=== PATIENT | male | born 1995 | race Hispanic/Latino ===

== ENCOUNTER 2024-06-25 12:46 | Inpatient (IN) | payer SELFPAY ==
[~2024-06-25] VITALS: Ht 172.7 cm; Wt 129.0 kg
[2024-06-25] MEDS: 0.9%NACL 1000ML 1,000 ML IV ONE (13:57)
[2024-06-25] MEDS: morPHINE 4 MG SYG IVP ONE (13:58)
[2024-06-25] MEDS: ondanSETRON 4MG INJ IVP ONE (13:58)
--- NOTE | 2024-06-25 14:00 | HMCIMG ---
US SCROTUM & CONTENTS HISTORY: scrotum pain TECHNIQUE: US SCROTUM & CONTENTS. B mode, color flow and spectral analysis was performed. FINDINGS: RIGHT TESTICLE: measures 4.9 cm. Vascular flow is seen. No evidence of hydrocele or varicocele. Epididymal head cyst is seen measuring 1.7 cm. LEFT TESTICLE: measures 3.7 cm. Vascular flow is seen. No evidence of hydrocele or varicocele. The epididymis demonstrates echogenicity within normal limits. IMPRESSION: Vascular flow was seen in both testicles at this time. Right epididymal head cyst.
[2024-06-25 14:17] LABS: BASOPHILS # (AUTO) 0.04 K/uL (0.00-0.20); BASOPHILS % (AUTO) 0.2 % (0.0-5.0); EOSINOPHILS # (AUTO) 0.03 K/uL (0.00-0.70); EOSINOPHILS % (AUTO) 0.2 % (0.0-8.0); HEMATOCRIT 37.8 % (42-54); MEAN CORPUSCULAR HEMOGLOBIN 25.7 pg (27.0-33.0); MEAN CORPUSCULAR VOLUME 80.4 fL (79-99); MONOCYTES # (AUTO) 1.6 K/uL (0.1-1.0); MONOCYTES % (AUTO) 10.1 % (3.0-13.0); NEUTROPHILS # (AUTO) 12.6 K/uL (1.8-7.7); NEUTROPHILS % (AUTO) 76.9 % (40.0-77.0); PLATELET COUNT (AUTO) 341 K/uL (130-400); RED CELL DISTRIBUTION WIDTH 14.5 % (11.0-15.5); WHITE BLOOD COUNT (AUTO) 16.3 K/uL (4.8-10.8)
[2024-06-25 14:22] LABS: APPEARANCE,URINE CLEAR (CLEAR); BILIRUBIN,URINE NEGATIVE (NEGATIVE); COLOR,URINE YELLOW (YELLOW); GLUCOSE, URINE (UA) NEGATIVE (NEGATIVE); KETONES,URINE NEGATIVE (NEGATIVE); LEUKOCYTE ESTERASE ,URINE NEGATIVE Leu/uL (NEGATIVE); NITRATE,URINE NEGATIVE (NEGATIVE); OCCULT BLOOD,URINE NEGATIVE (NEGATIVE); PH,URINE 6.5 (5.0-8.0); PROTEIN,URINE 10 mg/dL (NEGATIVE)
[2024-06-25 14:25] LABS: ADD UA MICROSCOPIC YES
[2024-06-25 14:27] LABS: MUCUS,URINE RARE LPF (None Seen); WBC,URINE 0-1 /HPF (0-1)
[2024-06-25 14:28] LABS: CREATININE 0.8 mg/dL (0.5-1.3); POTASSIUM 3.9 mmol/L (3.5-5.1)
[2024-06-25] MEDS ORDERED: IOHEXOL-350 75 ML VIAL IV ONE (15:09)
--- NOTE | 2024-06-25 15:38 | HMCIMG ---
CT ABDOMEN/PELVIS W/CONTRAST HISTORY: Abdominal pain COMPARISON: None TECHNIQUE: Multiple sequential axial images of the abdomen and pelvis were obtained from the dome of the diaphragm through symphysis pubis. Patient was examined 5 cc of Omnipaque through intravenous route. Oral contrast was not given. FINDINGS: No pleural effusion is seen bilaterally. There is no evidence of parenchymal disease or pulmonary nodule of the visualized lower lungs. Degenerative changes of the thoracolumbar spine are present. The heart is not enlarged. Liver is enlarged with fatty changes measuring 25 cm. There is sigmoid colon wall thickening with adjacent fat stranding suggestive of acute sigmoid diverticulitis. There is complex fluid collection with air collection near the sigmoid colon measuring 4 cm suspicious for abscess. No CT evidence of acute appendicitis is seen. Liver, spleen, adrenal glands and pancreas are unremarkable. There is no evidence of hydronephrosis bilaterally. No evidence of renal stone is seen. Fecal material is seen in the colon. There are normal size retroperitoneal and mesenteric lymph nodes. No ascites is seen. Pelvic sidewalls are symmetric bilaterally. Bladder is moderately distended without wall thickening. IMPRESSION: 1. Findings suggestive acute sigmoid diverticulitis with diverticular abscess. CT was performed with one or more following dose reduction techniques: automated exposure control, adjustment of the mA and kv according to patient's size, or use of a iterative reconstruction technique.
--- NOTE | 2024-06-25 16:24 | ERN ---
ED Note History of Present Illness Stated Complaint: LOWER ABD PAIN Chief Complaint: Abdominal Pain Time Seen by MD: 13:05 Time Seen by Midlevel: 13:05 Dictation: The patient is a 28-year-old male with no past medical history who presents to the emergency department with complaints of lower abdominal pain associated with nausea, nonbloody vomiting, nonbloody diarrhea. Patient reports pain radiates down his testicles and his leg. Reports on and off fevers. Reports burning urination. Denies any discharge. Allergies: Coded Allergies: No Known Drug Allergies (Unverified Allergy, Unknown, 06/25/24) Past Medical History Past Medical History: No Pertinent History Surgical History: None RN Note Reviewed/Agreed w/PFSH: Yes Review of System Dictation Constitutional: Negative for chills, and weight loss positive for fever Eyes: Negative for injury, pain,redness, and discharge ENT: Negative for injury,pain or swelling Cardiovascular: Negative for chest pain, palpitations, and edema Respiratory: Negative for shortness of breath, cough, and wheezing, Abdomen/GI: Negative for , and constipation positive for abdominal pain, nausea, vomiting, diarrhea Back: Negative for injury and pain : Negative for injury, bleeding and discharge MS/Extremity: Negative for injury and deformity Skin: Negative for rash, and discoloration Neuro: Negative for headache, weakness, numbness, tingling, and seizure Psych: Negative for suicide ideation, homicidal ideation, and hallucinations Initial Vital Sign VS Vital Signs Date Time Temp Pulse Resp B/P (MAP) Pulse Ox O2 Delivery O2 Flow Rate FiO2 06/25/24 13:17 100.2 96 18 153/90 Room Air 06/25/24 13:38 98 0 21 Physical Exam Dictation Vital Signs reviewed General Appearance: Alert, oriented x 3, no acute distress, well developed, nourished. Head and Face: non-traumatic. Eyes: PERRL, pink conjunctivas, eyelid no trauma, anterior chamber with arcus senilis. Ears: Pinnas intact and no signs of trauma or erythema ear canals clear and no discharge TM no erythema Nose: No discharge, no bleeding. Oropharynx: Mouth normal, tongue pink. pharynx clear,no erythema, tonsils no exudates, no abscesses noted, mucous membrane moist Neck: Supple, non-tender, no thyromegaly, no masses, no JVD, no bruits Breast:Deferred Chest:No tenderness, no crepitus, no paradoxical movement, no retractions Lungs:Clear, well-ventilated, symmetric, no rales, no wheezing, no rhonchi, no stridor, good breath sounds bilaterally Heart: Regular rate, regular rhythm, no murmur, no gallops Vascular: no peripheral edema, Abdomen: Soft, positive bowel sounds, nondistended, no guarding, Suprapubic tenderness, no rebound, no masses no hepatomegaly, no splenomegaly, no Wyatt's sign, no hernias. Rectal: Deferred Genital: Deferred Neurological: Normal speech, motor function intact, sensory function intact Musculoskeletal: Neck nontender, full range of motion, back nontender, full range of motion, Extremities: nontender, full range of motion Skin: Color pink, dry, no turgor, no rash, no lacerations, no abrasions, no contusions. Lymphatic: Deferred Results (Laboratory/Radiology) Laboratory/Radiology Laboratory Tests Test 06/25/24 14:01 06/25/24 14:08 06/25/24 16:37 Urine Color YELLOW (YELLOW) Urine Appearance CLEAR (CLEAR) Urine pH 6.5 (5.0-8.0) Urine Specific [place] 1.029 (1.001-1.031) Urine Protein 10 mg/dL (NEGATIVE) H Urine Glucose (UA) NEGATIVE mg/dL (NEGATIVE) Urine Ketones NEGATIVE mg/dL (NEGATIVE) Urine Occult Blood NEGATIVE (NEGATIVE) Urine Nitrate NEGATIVE (NEGATIVE) Urine Bilirubin NEGATIVE mg/dL (NEGATIVE) Urine Urobilinogen 4.0 mg/dL (0.2-1.0) H Urine Leukocyte Esterase NEGATIVE Fidelia/uL Urine RBC 2-5 /HPF (0-1) H Urine WBC 0-1 /HPF (0-1) Urine Bacteria None /HPF (None Seen) White Blood Count 16.3 K/uL (4.8-10.8) H Red Blood Count 4.70 MIL/uL (4.50-6.20) Hemoglobin 12.1 g/dL (14.0-18.0) L Hematocrit 37.8 % (42-54) L Mean Corpuscular Volume 80.4 fL (79-99) Mean Corpuscular Hemoglobin 25.7 pg (27.0-33.0) L Mean Corpuscular Hemoglobin Concent 32.0 g/dL (32.0-36.0) Red Cell Distribution Width 14.5 % (11.0-15.5) Platelet Count 341 K/uL (130-400) Mean Platelet Volume 8.6 fL (7.5-10.5) Immature Granulocyte % (Auto) 0.6 % (0-1) Neutrophils (%) (Auto) 76.9 % (40.0-77.0) Lymphocytes (%) (Auto) 12.0 % (21.0-51.0) L Monocytes (%) (Auto) 10.1 % (3.0-13.0) Eosinophils (%) (Auto) 0.2 % (0.0-8.0) Basophils (%) (Auto) 0.2 % (0.0-5.0) Neutrophils # (Auto) 12.6 K/uL (1.8-7.7) H Lymphocytes # (Auto) 2.0 K/uL (1.0-4.8) Monocytes # (Auto) 1.6 K/uL (0.1-1.0) H Eosinophils # (Auto) 0.03 K/uL (0.00-0.70) Basophils # (Auto) 0.04 K/uL (0.00-0.20) Absolute Immature Granulocyte (auto 0.10 K/uL (0-1) Nucleated Red Blood Cells 0.0 % (0.0-0.19) Sodium Level 136 mmol/L (136-145) Potassium Level 3.9 mmol/L (3.5-5.1) Chloride Level 101 mmol/L (101-111) Carbon Dioxide Level 31 mmol/L (21-32) Blood Urea Nitrogen 9 mg/dL (7-18) Creatinine 0.8 mg/dL (0.5-1.3) Glomerular Filtration Rate Calc 125 mL/min (>90) Random Glucose 99 mg/dL (70-105) Total Calcium 8.9 mg/dL (8.5-10.1) Lactic Acid Level 1.0 mmol/L (0.8-2.5) REASON: scrotum pain ORDERING PHYSICIAN: SHUBHAM LOBO PROCEDURE: SCROTUM - US SCROTUM & CONTENTS US SCROTUM & CONTENTS HISTORY: scrotum pain TECHNIQUE: US SCROTUM & CONTENTS. B mode, color flow and spectral analysis was performed. FINDINGS: RIGHT TESTICLE: measures 4.9 cm. Vascular flow is seen. No evidence of hydrocele or varicocele. Epididymal head cyst is seen measuring 1.7 cm. LEFT TESTICLE: measures 3.7 cm. Vascular flow is seen. No evidence of hydrocele or varicocele. The epididymis demonstrates echogenicity within normal limits. IMPRESSION: Vascular flow was seen in both testicles at this time. Right epididymal head cyst. REASON: lower abd pain ORDERING PHYSICIAN: SHUBHAM LOBO PROCEDURE: ABD PEL W - CT ABDOMEN/PELVIS W/CONTRAST CT ABDOMEN/PELVIS W/CONTRAST HISTORY: Abdominal pain COMPARISON: None TECHNIQUE: Multiple sequential axial images of the abdomen and pelvis were obtained from the dome of the diaphragm through symphysis pubis. Patient was examined 5 cc of Omnipaque through intravenous route. Oral contrast was not given. FINDINGS: No pleural effusion is seen bilaterally. There is no evidence of parenchymal disease or pulmonary nodule of the visualized lower lungs. Degenerative changes of the thoracolumbar spine are present. The heart is not enlarged. Liver is enlarged with fatty changes measuring 25 cm. There is sigmoid colon wall thickening with adjacent fat stranding suggestive of acute sigmoid diverticulitis. There is complex fluid collection with air collection near the sigmoid colon measuring 4 cm suspicious for abscess. No CT evidence of acute appendicitis is seen. Liver, spleen, adrenal glands and pancreas are unremarkable. There is no evidence of hydronephrosis bilaterally. No evidence of renal stone is seen. Fecal material is seen in the colon. There are normal size retroperitoneal and mesenteric lymph nodes. No ascites is seen. Pelvic sidewalls are symmetric bilaterally. Bladder is moderately distended without wall thickening. IMPRESSION: 1. Findings suggestive acute sigmoid diverticulitis with diverticular abscess. Labs Reviewed?: Yes ED Course ED Course Orders Procedure Category Date Status Time Cbc With Differential LAB 06/25/24 Complete 13:11 Urinalysis Profile LAB 06/25/24 Complete 13:11 0.9%Nacl 1000ml (Ns PHA 06/25/24 Complete 1000ml) 13:30 Morphine 4mg Syg PHA 06/25/24 Complete (Morphine 4mg Syg) 13:30 Ondansetron 4mg Inj PHA 06/25/24 Complete (Zofran 4mg Inj) 13:30 Basic Metabolic Panel LAB 06/25/24 Complete 13:11 Us Scrotum & Contents US 06/25/24 Resulted 13:11 Ct Abdomen/Pelvis CT 06/25/24 Resulted W/Contrast 14:29 Iohexol (Omnipaque) PHA 06/25/24 Complete 15:09 Blood Cult JESSICA 06/25/24 In Process 16:01 Zosyn 3.375gm+Ns 50ml PHA 06/25/24 Complete (Zosyn 3.375gm+Ns 16:30 Lactic Acid LAB 06/25/24 Complete 16:01 Hydromorphone 0.5mg PHA 06/25/24 Complete Syg (Dilaudid 0.5mg 17:00 Admit Orders ADM 06/25/24 Transmitted 16:58 Edm Admit Bridge Order ADM 06/25/24 Transmitted 16:58 Diphenhydramine Hcl PHA 06/25/24 Complete (Benadryl Inj) 17:30 Vital Signs Date Time Temp Pulse Resp B/P (MAP) Pulse Ox O2 Delivery O2 Flow Rate FiO2 06/25/24 13:38 100.0 90 18 150/88 98 Room Air* 0 21 06/25/24 13:17 100.2 96 18 153/90 Room Air Medical Decision Making MDM MDM: The patient is a 28-year-old male with no past medical history who presents to the emergency department with complaints of lower abdominal pain associated with nausea, nonbloody vomiting, nonbloody diarrhea. Patient reports pain radiates down his testicles and his leg. Reports on and off fevers. Reports burning urination. Denies any discharge. CBC showed leukocytosis, mild normocytic anemia, chemistry showed no electrolyte imbalance, normal renal function, urinalysis negative for leukocyte esterase, no nitrites, ultrasound revealed a epididymal cyst to the right, CT abdomen showed acute sigmoid diverticulitis with possible abscess. Patient will be admitted for treatment. Differential diagnosis: UTI, diverticulitis, appendicitis, gastroenteritis Comorbidities: None Tests considered and not ordered secondary to shared decision making include: none Previous outside records reviewed: none Risk of complication and/or morbidity or mortality of patient management: The patient meets criteria for admission. Need for emergency major/minor surgery: No There are no social concerns with this patient. I independently interpreted the tests I ordered (labs, urinalysis, etc.). I discussed the case with the hospitalist for admission. Denae who accepts admission I discussed the case with the following specialists: Historian: pateint. I independently interpreted imaging studies and EKGs that I ordered (US, CT, XR, EKG, etc.). External chart review: none. Medical management and examination interpretation discussions were had by me with other qualified healthcare professionals as indicated for the patient's care. DX & DISP Disposition: Inpatient Decision to Admit Date: Jun 25, 2024 Decision to Admit Time: 16:58 Departure Impression: Primary Impression: Diverticulitis Additional Impressions: Leukocytosis, Nausea and vomiting, Fever, Sepsis Condition: Stable Referrals: SELF,REFERRAL (PCP) I have reviewed the case, and I agree with, Diagnosis and Plan SHUBHAM LOBOP Jun 25, 2024 16:24
[2024-06-25] MEDS: ZOSYN 3.375GM+NS 50ML 50 ML IVPB ONE (16:39)
[2024-06-25] MEDS: hydroMORPHone 0.5 MG SYG (0.5MG/0.5ML) IVP ONE (16:40)
[2024-06-25] MEDS: DiphenhydrAMINE HCL 50 MG/ML VIAL IM ONE (17:31)
--- NOTE | 2024-06-25 19:03 | NUR ---
ortho vitals supine-116/77 hr-94 sitting- 120/84 hr 98 standing- 113/67 hr 106
--- NOTE | 2024-06-25 19:47 | HP ---
[facility] HISTORY AND PHYSICAL Date of Service: Jun 25, 2024 Time of Service: 19:41 Chief complaint abdominal pain HISTORY OF PRESENT ILLNESS: [ 28-year-old male with no significant past medical history started with cramping pains last week pain worsened until his about a 8/10.. He has also had a change in his bowel habits with diarrhea in the last week and fevers for the last week. He has been controlling the fever with Tylenol. He describes nausea but no vomiting today. He had his last bowel movement this morning was loose there was no blood. ] REVIEW OF SYSTEMS Ten points reviewed and negative except for history of present illness PAST MEDICAL HISTORY: [ No hypertension, no cancer, no diabetes, no TB, no hepatitis ] PAST SURGICAL HISTORY: [ Negative ] PAST SOCIAL HISTORY: [ Patient is with four kids alive and well, nonsmoker and drinks about two beers per week. ] FAMILY HISTORY: [ Parents are both living mother has hypertension he has one brother and two sisters alive and well. Allergies he did not describe facial flushing when he received morphine a few moments ago. ] Coded Allergies: No Known Drug Allergies (Unverified Allergy, Unknown, 06/25/24) PHYSICAL EXAM GENERAL APPEARANCE: The patient is awake, alert, and oriented, in no acute cardiopulmonary distress. NEUROLOGICAL: Cranial nerves II-XII grossly intact. Motor is 5/5 in bilateral upper and lower extremities proximal to distal. No sensory deficits. HEENT: Face is symmetric. Pupils are equal and reactive. Extraocular movements are intact. NECK: Supple. No JVD. No thyromegaly. No submental, submandibular, pre- /postauricular, occipital or supraclavicular lymphadenopathy. CHEST: Normal chest expansion. No Telemetry. LUNGS: Absence of any rales, rhonchi or any wheezing. CARDIOVASCULAR: Regular. S1 and S2 normal. No appreciable rubs, murmurs or gallops. ABDOMEN: Soft, nontender, and nondistended. There is no rebound, voluntary guarding, or rigidity. : Deferred. No Billy. EXTREMITIES: Non-edematous and not cyanotic. No clubbing. Good capillary refill. SKIN: No skin breakdown. Vital Sign (Last 24 Hours) 06/25/24 13:38 Temp 100.0 Pulse 90 Resp 18 B/P (MAP) 150/88 Pulse Ox 98 O2 Delivery Room Air* O2 Flow Rate 0 FiO2 21 LABS: Laboratory: Test 06/25/24 16:37 06/25/24 14:08 06/25/24 14:01 Range/Units Lactic Acid Level 1.0 0.8-2.5 mmol/L White Blood Count 16.3 H 4.8-10.8 K/uL Red Blood Count 4.70 4.50-6.20 MIL/uL Hemoglobin 12.1 L 14.0-18.0 g/dL Hematocrit 37.8 L 42-54 % Mean Corpuscular Volume 80.4 79-99 fL Mean Corpuscular Hemoglobin 25.7 L 27.0-33.0 pg Mean Corpuscular Hemoglobin Concent 32.0 32.0-36.0 g/dL Red Cell Distribution Width 14.5 11.0-15.5 % Platelet Count 341 130-400 K/uL Mean Platelet Volume 8.6 7.5-10.5 fL Immature Granulocyte % (Auto) 0.6 0-1 % Neutrophils (%) (Auto) 76.9 40.0-77.0 % Lymphocytes (%) (Auto) 12.0 L 21.0-51.0 % Monocytes (%) (Auto) 10.1 3.0-13.0 % Eosinophils (%) (Auto) 0.2 0.0-8.0 % Basophils (%) (Auto) 0.2 0.0-5.0 % Neutrophils # (Auto) 12.6 H 1.8-7.7 K/uL Lymphocytes # (Auto) 2.0 1.0-4.8 K/uL Monocytes # (Auto) 1.6 H 0.1-1.0 K/uL Eosinophils # (Auto) 0.03 0.00-0.70 K/uL Basophils # (Auto) 0.04 0.00-0.20 K/uL Absolute Immature Granulocyte (auto 0.10 0-1 K/uL Nucleated Red Blood Cells 0.0 0.0-0.19 % Sodium Level 136 136-145 mmol/L Potassium Level 3.9 3.5-5.1 mmol/L Chloride Level 101 101-111 mmol/L Carbon Dioxide Level 31 21-32 mmol/L Blood Urea Nitrogen 9 7-18 mg/dL Creatinine 0.8 0.5-1.3 mg/dL Glomerular Filtration Rate Calc 125 >90 mL/min Random Glucose 99 70-105 mg/dL Total Calcium 8.9 8.5-10.1 mg/dL Urine Color YELLOW YELLOW Urine Appearance CLEAR CLEAR Urine pH 6.5 5.0-8.0 Urine Specific [place] 1.029 1.001-1.031 Urine Protein 10 H NEGATIVE mg/dL Urine Glucose (UA) NEGATIVE NEGATIVE mg/dL Urine Ketones NEGATIVE NEGATIVE mg/dL Urine Occult Blood NEGATIVE NEGATIVE Urine Nitrate NEGATIVE NEGATIVE Urine Bilirubin NEGATIVE NEGATIVE mg/dL Urine Urobilinogen 4.0 H 0.2-1.0 mg/dL Urine Leukocyte Esterase NEGATIVE NEGATIVE Fidelia/uL Urine RBC 2-5 H 0-1 /HPF Urine WBC 0-1 0-1 /HPF Urine Bacteria None None Seen /HPF DIAGNOSTICS / RADIOLOGY: [ CT scan showing acute sigmoid diverticulitis with abscess] ASSESSMENT: [1. Acute sigmoid diverticulitis with abscess ] PLAN: [ Admit the patient to med surge Zosyn 3.375 IV q6 hr blood cx's taken in ER Tylenol for fever and pain Toradol 30 mg IV Q eight p.r.n. pain Pepcid 20 mg IV q.12 Lovenox 40 mg IV q.day Further orders to follow as indicated Surgical consultation already completed Dr. Burns notified] ROSE MOREIRA MD Jun 25, 2024 19:47
[2024-06-25] MEDS ORDERED: ketOROlac 30MG VIAL (30MG/ML) IM PRN (20:00)
[2024-06-25 21:26] VITALS: BP 126/77; PULSE 111; RESP 20; TEMP 100.2
[2024-06-25] MEDS ORDERED: acetaMINOPHEN 325 MG TAB PO PRN ×2 (23:00)
[2024-06-25] MEDS ORDERED: DiphenhydrAMINE HCL 50 MG/ML VIAL IV PRN (23:00)
[2024-06-25] MEDS ORDERED: LACTULOSE 20 GM/30 ML UDCUP PO PRN (23:00)
[2024-06-25] MEDS ORDERED: NITROGLYCERIN 0.4 MG SL TAB SL PRN (23:00)
[2024-06-25] MEDS ORDERED: DiphenhydrAMINE HCL 25 MG CAPSULE PO PRN (23:00)
[2024-06-25] MEDS: FAMOTIDINE 20MG VIAL IV SCH (23:06)
[2024-06-25] MEDS: ketOROlac 30MG VIAL (30MG/ML) IVP PRN (23:07)
[2024-06-25] MEDS: PHARMACY COMMUNICATION MISC ONE (23:07)
[2024-06-25] MEDS: DEXTROSE 5 %-0.45 % NACL 1,000 ML IV SCH (23:08)
[2024-06-25 23:38] VITALS: O2SAT 98
[2024-06-26] VITALS (9 sets, daily range): BP systolic 121–151; BP diastolic 41–70; PULSE 93–111; RESP 19–20; TEMP 98.6–100.7; O2SAT 97–98
[2024-06-26 06:19] LABS: BASOPHILS # (AUTO) 0.03 K/uL (0.00-0.20); BASOPHILS % (AUTO) 0.2 % (0.0-5.0); EOSINOPHILS # (AUTO) 0.06 K/uL (0.00-0.70); EOSINOPHILS % (AUTO) 0.4 % (0.0-8.0); HEMATOCRIT 37.3 % (42-54); IMMATURE GRANULOCYTE ABSOLUTE 0.07 K/uL (0-1); LYMPHOCYTES # (AUTO) 1.7 K/uL (1.0-4.8); LYMPHOCYTES % (AUTO) 12.2 % (21.0-51.0); MEAN CORPUSCULAR HEMOGLOBIN 25.8 pg (27.0-33.0); MEAN CORPUSCULAR HGB CONC 31.9 g/dL (32.0-36.0); MEAN CORPUSCULAR VOLUME 80.7 fL (79-99); MONOCYTES # (AUTO) 1.2 K/uL (0.1-1.0); NEUTROPHILS # (AUTO) 10.6 K/uL (1.8-7.7); NEUTROPHILS % (AUTO) 77.7 % (40.0-77.0); PLATELET COUNT (AUTO) 312 K/uL (130-400); RED BLOOD CELL COUNT(AUTO) 4.62 MIL/uL (4.50-6.20); RED CELL DISTRIBUTION WIDTH 14.4 % (11.0-15.5); WHITE BLOOD COUNT (AUTO) 13.6 K/uL (4.8-10.8)
[2024-06-26 06:29] LABS: CREATININE 0.9 mg/dL (0.5-1.3); POTASSIUM 3.8 mmol/L (3.5-5.1)
[2024-06-26] MEDS: ZOSYN 3.375GM +NS 50ML IVPB SCH (12:20)
[2024-06-26] MEDS ORDERED: 0.9%NACL 50ML IV SCH (13:00)
--- NOTE | 2024-06-26 13:14 | PN ---
[facility] PROGRESS NOTE Date of Service: Jun 26, 2024 Time of Service: 13:[address] Mckoy SUBJECTIVE: [06/25 28-year-old male with no significant past medical history started with cramping pains last week pain worsened until his about a 8/10.. He has also had a change in his bowel habits with diarrhea in the last week and fevers for the last week. He has been controlling the fever with Tylenol. He describes nausea but no vomiting today. He had his last bowel movement this morning was loose there was no blood. 06/26 patient was seen by nurse practitioner physician during rounding in room 311. Patient is pending evaluation of surgeon regarding the diverticulitis and possible abscess. Patient was septic on admission we will continue IV antib iotics. WBC 13.6 which is at this moment trending down In the meantime we will continue to monitor patient. A.m. labs ] REVIEW OF SYSTEMS Ten points reviewed and negative except for history of present illness PHYSICAL EXAM GENERAL APPEARANCE: The patient is awake, alert, and oriented, in no acute c ardiopulmonary distress. NEUROLOGICAL: Cranial nerves II-XII grossly intact. Motor is 5/5 in bilateral upper and lower extremities proximal to distal. No sensory deficits. HEENT: Face is symmetric. Pupils are equal and reactive. Extraocular movements are intact. NECK: Supple. No JVD. No thyromegaly. No submental, submandibular, pre- /postauricular, occipital or supraclavicular lymphadenopathy. CHEST: Normal chest expansion. No Telemetry. LUNGS: Absence of any rales, rhonchi or any wheezing. CARDIOVASCULAR: Regular. S1 and S2 normal. No appreciable rubs, murmurs or gallops. ABDOMEN: Soft, nontender, and nondistended. There is no rebound, voluntary guarding, or rigidity. : Deferred. No Billy. EXTREMITIES: Non-edematous and not cyanotic. No clubbing. Good capillary refill. SKIN: No skin breakdown. Vital Signs (last 8hr) Date Time Temp Pulse Resp B/P (MAP) Pulse Ox O2 Delivery O2 Flow Rate FiO2 06/26/24 08:00 99.1 104 20 142/57 97 Room Air LABS: Laboratory: Test 06/26/24 05:54 06/25/24 16:37 06/25/24 14:01 Range/Units White Blood Count 13.6 H 4.8-10.8 K/uL Red Blood Count 4.62 4.50-6.20 MIL/uL Hemoglobin 11.9 L 14.0-18.0 g/dL Hematocrit 37.3 L 42-54 % Mean Corpuscular Volume 80.7 79-99 fL Mean Corpuscular Hemoglobin 25.8 L 27.0-33.0 pg Mean Corpuscular Hemoglobin Concent 31.9 L 32.0-36.0 g/dL Red Cell Distribution Width 14.4 11.0-15.5 % Platelet Count 312 130-400 K/uL Mean Platelet Volume 8.5 7.5-10.5 fL Immature Granulocyte % (Auto) 0.5 0-1 % Neutrophils (%) (Auto) 77.7 H 40.0-77.0 % Lymphocytes (%) (Auto) 12.2 L 21.0-51.0 % Monocytes (%) (Auto) 9.0 3.0-13.0 % Eosinophils (%) (Auto) 0.4 0.0-8.0 % Basophils (%) (Auto) 0.2 0.0-5.0 % Neutrophils # (Auto) 10.6 H 1.8-7.7 K/uL Lymphocytes # (Auto) 1.7 1.0-4.8 K/uL Monocytes # (Auto) 1.2 H 0.1-1.0 K/uL Eosinophils # (Auto) 0.06 0.00-0.70 K/uL Basophils # (Auto) 0.03 0.00-0.20 K/uL Absolute Immature Granulocyte (auto 0.07 0-1 K/uL Nucleated Red Blood Cells 0.0 0.0-0.19 % Sodium Level 135 L 136-145 mmol/L Potassium Level 3.8 3.5-5.1 mmol/L Chloride Level 100 L 101-111 mmol/L Carbon Dioxide Level 30 21-32 mmol/L Blood Urea Nitrogen 10 7-18 mg/dL Creatinine 0.9 0.5-1.3 mg/dL Glomerular Filtration Rate Calc 121 >90 mL/min Random Glucose 110 H 70-105 mg/dL Total Calcium 8.9 8.5-10.1 mg/dL Lactic Acid Level 1.0 0.8-2.5 mmol/L Urine Color YELLOW YELLOW Urine Appearance CLEAR CLEAR Urine pH 6.5 5.0-8.0 Urine Specific [place] 1.029 1.001-1.031 Urine Protein 10 H NEGATIVE mg/dL Urine Glucose (UA) NEGATIVE NEGATIVE mg/dL Urine Ketones NEGATIVE NEGATIVE mg/dL Urine Occult Blood NEGATIVE NEGATIVE Urine Nitrate NEGATIVE NEGATIVE Urine Bilirubin NEGATIVE NEGATIVE mg/dL Urine Urobilinogen 4.0 H 0.2-1.0 mg/dL Urine Leukocyte Esterase NEGATIVE NEGATIVE Fidelia/uL Urine RBC 2-5 H 0-1 /HPF Urine WBC 0-1 0-1 /HPF Urine Bacteria None None Seen /HPF Current Medications Medications (Trade) Dose Ordered Sig/Krista Route PRN Reason Start Time Stop Time Status Last Admin Dose Admin Acetaminophen (TYLenol 325MG TAB) 650 mg Q4H PRN PO PAIN LEVEL 1 TO 3 06/25/24 23:00 07/25/24 22:59 Acetaminophen (TYLenol 325MG TAB) 650 mg Q6H PRN PO TEMPERATURE GREATER THAN 101.5 06/25/24 23:00 07/25/24 22:59 Dextrose/Sodium Chloride 1,000 ml @ 120 mls/hr Q8H20M IV 06/25/24 23:00 07/25/24 22:59 06/26/24 09:56 120 MLS/HR Diphenhydramine HCl (BENAdryl CAP) 25 mg Q4HPRN PRN PO ITCHING 06/25/24 23:00 07/25/24 22:59 Diphenhydramine HCl (BENAdryl INJ) 25 mg Q6H PRN IV ITCHING IF NPO 06/25/24 23:00 07/25/24 22:59 Famotidine (Pepcid 20mg Vial) 20 mg BID IV 06/25/24 23:00 07/25/24 22:59 06/26/24 09:50 20 MG Ketorolac Tromethamine (toRADol) 30 mg Q6H PRN IM SEVERE PAIN (7-10) 06/25/24 20:00 06/25/24 22:51 DC Ketorolac Tromethamine (toRADol) 30 mg Q6H PRN IVP SEVERE PAIN (7-10) 06/25/24 23:00 06/30/24 22:59 06/26/24 09:57 30 MG Lactulose (Constulose 20gm/ 30ml Udcup) 20 gm BID PRN PO CONSTIPATION 06/25/24 23:00 07/25/24 22:59 Nitroglycerin (Nitrostat) 0.4 mg AD PRN SL CHEST PAIN 06/25/24 23:00 07/25/24 22:59 Piperacillin Sod/ Tazobactam Sod (Zosyn 3.375gm+NS 50ml) 3.375 gm Q8H IVPB 06/26/24 12:30 07/06/24 12:29 06/26/24 12:20 3.375 GM Sodium Chloride (NS 50ml) 50 ml AD IV 06/26/24 13:00 06/26/24 12:06 DC DIAGNOSTICS / RADIOLOGY: [ ] ASSESSMENT: [1. Acute Sepsis POA Acute sigmoid diverticulitis with abscess POA Electrolyte imbalance hyponatremia Na 135 POA Leukocytosis WBC 16.3 POA Multifactorial anemia due to above POA Right epididymal head cyst per ultrasound scrotum POA ] PLAN: [ Admit the patient to med surge Zosyn 3.375 IV q6 hr Pending blood culture Pending surgeon evaluation Tylenol for fever and pain Toradol 30 mg IV Q eight p.r.n. pain Pepcid 20 mg IV q.12 Lovenox 40 mg IV q.day Further orders to follow as indicated CT abdomen/pelvis showed acute sigmoid diverticulitis with diverticular abscess Testicular ultrasound showed vascular flow was seen in both testicles at this time. Right epididymal head cyst.] ATTESTATION BY PHYSICIAN I have seen and examined the patient. I reviewed the documentation, medical decision making, and treatment plan as noted by the mid-level provider above. I agree with the findings and plan of care. BEA MCKOY MD, KATARZYNA B [employer] REPORT WRITER Jun 26, 2024 13:14
--- NOTE | 2024-06-26 18:26 | CONS ---
GENERAL SURGERY CONSULTATION NOTE DATE OF CONSULTATION: Jun 26, 2024 TIME OF CONSULTATION: 18:26 CONSULTING SERVICE: Kimo Shen MD REQUESTING PHYSICAIN: [ ] REASON FOR CONSULTATION: [ ] Acute diverticulitis with abscess HISTORY OF PRESENT ILLNESS: [ 28-year-old male who presented with abdominal pain Pain had been going on for about a week now It was seen in the hospital where he was started on oral antibiotics However did not get well and was started into a fever and worsen pain PAST MEDICAL HISTORY: [ ] morbid obesity Diabetes PAST SURGICAL HISTORY: [ ] none FAMILY HISTORY: [ ] positive for diabetes and hypertension SOCIAL HISTORY: [ ] no smoking No alcohol Current Medications Medications (Trade) Dose Ordered Sig/Krista Route Start Time Stop Time Status Last Admin Dose Admin Dextrose/Sodium Chloride 1,000 ml @ 120 mls/hr Q8H20M IV 06/25/24 23:00 07/25/24 22:59 06/26/24 09:56 120 MLS/HR Famotidine (Pepcid 20mg Vial) 20 mg BID IV 06/25/24 23:00 07/25/24 22:59 06/26/24 09:50 20 MG Piperacillin Sod/ Tazobactam Sod (Zosyn 3.375gm+NS 50ml) 3.375 gm Q8H IVPB 06/26/24 12:30 07/06/24 12:29 06/26/24 12:20 3.375 GM Sodium Chloride (NS 50ml) 50 ml AD IV 06/26/24 13:00 06/26/24 12:06 DC Allergies: Coded Allergies: hydromorphone (Unverified Allergy, Intermediate, REDNESS, 06/25/24) HIVES REVIEW OF SYSTEMS: BLOCK LAYER: [Denies headaches or blurring of vision.] RESP: [No cough, chest pain or SOB.] CVS: [No palpitaions.] GI: [abdominal pain withNo nausea or vomiting, no diarrhea or constipation.] ALLEN: [No dysuria or hematuria.] Musculoskeletal: [No swelling or joint pain.] BACK: [No pain or swelling.] All other systems are reviewed and essentially negative pertinent positives in HPI. PHYSICAL EXAMINATION: GENERAL: [Patient is lying comfortably in bed, not in any obvious distress.] HEAD: [Normal with no signs of head trauma.] EYES: [Not pale not jaundiced afebrile to touch.] ENT: [ Normal.] NECK: [Supple,no tenderness,no lymphadenopathy,no masses,no thyromegaly ,no bruits, no JVD.] LUNGS: [Clear breath sounds bilaterally. No wheezes, rales, or rhonchi.] HEART: [Regular rate and rhythm. Normal S1 and S2, without murmurs, rub or gallop.] VASC: [No edema. Peripheral pulses normal and equal in all extremities.] ABD: [Bowel sounds present,soft, Obese left lower quadrant tenderness : [Normal, no suprapubic tenderness.] LYMPH: [No lymphadenopathy noted.] EXT: [ Warm soft, non tender.] SKIN: [ No rashes or lesions.] NEURO: [ Awake Alert and oriented x3.] LABORATORY: [ ] Hematology Labs: Test 06/26/24 05:54 Range/Units White Blood Count 13.6 H 4.8-10.8 K/uL Red Blood Count 4.62 4.50-6.20 MIL/uL Hemoglobin 11.9 L 14.0-18.0 g/dL Hematocrit 37.3 L 42-54 % Mean Corpuscular Volume 80.7 79-99 fL Mean Corpuscular Hemoglobin 25.8 L 27.0-33.0 pg Mean Corpuscular Hemoglobin Concent 31.9 L 32.0-36.0 g/dL Red Cell Distribution Width 14.4 11.0-15.5 % Platelet Count 312 130-400 K/uL Mean Platelet Volume 8.5 7.5-10.5 fL Immature Granulocyte % (Auto) 0.5 0-1 % Neutrophils (%) (Auto) 77.7 H 40.0-77.0 % Lymphocytes (%) (Auto) 12.2 L 21.0-51.0 % Monocytes (%) (Auto) 9.0 3.0-13.0 % Eosinophils (%) (Auto) 0.4 0.0-8.0 % Basophils (%) (Auto) 0.2 0.0-5.0 % Neutrophils # (Auto) 10.6 H 1.8-7.7 K/uL Lymphocytes # (Auto) 1.7 1.0-4.8 K/uL Monocytes # (Auto) 1.2 H 0.1-1.0 K/uL Eosinophils # (Auto) 0.06 0.00-0.70 K/uL Basophils # (Auto) 0.03 0.00-0.20 K/uL Absolute Immature Granulocyte (auto 0.07 0-1 K/uL Nucleated Red Blood Cells 0.0 0.0-0.19 % Chemistry Labs: Test 06/26/24 05:54 06/25/24 16:37 Range/Units Sodium Level 135 L 136-145 mmol/L Potassium Level 3.8 3.5-5.1 mmol/L Chloride Level 100 L 101-111 mmol/L Carbon Dioxide Level 30 21-32 mmol/L Blood Urea Nitrogen 10 7-18 mg/dL Creatinine 0.9 0.5-1.3 mg/dL Glomerular Filtration Rate Calc 121 >90 mL/min Random Glucose 110 H 70-105 mg/dL Total Calcium 8.9 8.5-10.1 mg/dL Lactic Acid Level 1.0 0.8-2.5 mmol/L DIAGNOSTICS / RADIOLOGY: [Copy/Paste Echos/Imaging Report here] ASSESSMENT: [] Acute diverticulitis Localized abscess PLAN: [] NPO/IVF/IV ANTIOBIOTICS Labs in am IR for percut drainage KIMO SHEN MD Jun 26, 2024 18:26
[2024-06-27] VITALS (8 sets, daily range): BP systolic 106–138; BP diastolic 60–90; PULSE 87–101; RESP 18–19; TEMP 98–99; O2SAT 96
[2024-06-27 07:04] LABS: BASOPHILS # (AUTO) 0.02 K/uL (0.00-0.20); BASOPHILS % (AUTO) 0.2 % (0.0-5.0); EOSINOPHILS # (AUTO) 0.12 K/uL (0.00-0.70); EOSINOPHILS % (AUTO) 0.9 % (0.0-8.0); HEMATOCRIT 35.1 % (42-54); IMMATURE GRANULOCYTE ABSOLUTE 0.07 K/uL (0-1); LYMPHOCYTES # (AUTO) 1.6 K/uL (1.0-4.8); LYMPHOCYTES % (AUTO) 12.3 % (21.0-51.0); MEAN CORPUSCULAR HEMOGLOBIN 25.9 pg (27.0-33.0); MEAN CORPUSCULAR HGB CONC 32.2 g/dL (32.0-36.0); MEAN CORPUSCULAR VOLUME 80.3 fL (79-99); MONOCYTES # (AUTO) 1.2 K/uL (0.1-1.0); MONOCYTES % (AUTO) 9.5 % (3.0-13.0); NEUTROPHILS # (AUTO) 9.8 K/uL (1.8-7.7); NEUTROPHILS % (AUTO) 76.6 % (40.0-77.0); PLATELET COUNT (AUTO) 329 K/uL (130-400); RED BLOOD CELL COUNT(AUTO) 4.37 MIL/uL (4.50-6.20); RED CELL DISTRIBUTION WIDTH 14.1 % (11.0-15.5); WHITE BLOOD COUNT (AUTO) 12.8 K/uL (4.8-10.8)
[2024-06-27 07:17] LABS: INR 1.12 (0.85-1.15); PROTHROMBIN TIME 11.7 SEC (9.6-11.6)
[2024-06-27 07:18] LABS: PARTIAL THROMBOPLASTIN TIME 27.2 SEC (26.3-35.5)
[2024-06-27 07:28] LABS: ALBUMIN 2.7 g/dL (3.5-5.0); BILIRUBIN,TOTAL 0.5 mg/dL (0.2-1.0); CREATININE 0.8 mg/dL (0.5-1.3); MAGNESIUM 2.2 mg/dL (1.80-2.40); POTASSIUM 3.7 mmol/L (3.5-5.1); TOTAL PROTEIN, SERUM 7.8 g/dL (6.0-8.3)
--- NOTE | 2024-06-27 08:15 | NUR ---
CT GD DRAIN PLACEMENT CANCELLED IMAGES REVIEWED BY DR BUENO. PER DR BUENO FLUID COLLECTION TOO LTTLE IN SIZE. WILL LET DR PREET URIAS KNOW. BARRY BLANC NOTIFIED OF OUTCOME.
--- NOTE | 2024-06-27 13:35 | NUR ---
ROUNDS DR. MALIN ROUNDED AT BEDSIDE. VORB FOR CT ABD/PELVIS WITH ORAL AND IV CONTRAST TO BE PERFORMED TOMORROW IN AM. ORDERS PLACED AND CARRIED OUT.
--- NOTE | 2024-06-27 15:59 | PN ---
[facility] PROGRESS NOTE Date of Service: Jun 27, 2024 Time of Service: 15:58 SUBJECTIVE: [06/25 28-year-old male with no significant past medical history started with cramping pains last week pain worsened until his about a 8/10.. He has also had a change in his bowel habits with diarrhea in the last week and fevers for the last week. He has been controlling the fever with Tylenol. He describes nausea but no vomiting today. He had his last bowel movement this morning was loose there was no blood. 06/26 patient was seen by nurse practitioner physician during rounding in room 311. Patient is pending evaluation of surgeon regarding the diverticulitis and possible abscess. Patient was septic on admission we will continue IV antibiotics. WBC 13.6 which is at this moment trending down In the meantime we will continue to monitor patient. A.m. labs ] 06/27 24 patient was seen and examined. He is clinically doing well and also with decreasing leukocytosis. We will continue current antibiotics. Monitor clinically. Follow up surgery recommendations REVIEW OF SYSTEMS Ten points reviewed and negative except for history of present illness PHYSICAL EXAM GENERAL APPEARANCE: The patient is awake, alert, and oriented, in no acute cardiopulmonary distress. NEUROLOGICAL: Cranial nerves II-XII grossly intact. Motor is 5/5 in bilateral upper and lower extremities proximal to distal. No sensory deficits. HEENT: Face is symmetric. Pupils are equal and reactive. Extraocular movements are intact. NECK: Supple. No JVD. No thyromegaly. No submental, submandibular, pre- /postauricular, occipital or supraclavicular lymphadenopathy. CHEST: Normal chest expansion. No Telemetry. LUNGS: Absence of any rales, rhonchi or any wheezing. CARDIOVASCULAR: Regular. S1 and S2 normal. No appreciable rubs, murmurs or gallops. ABDOMEN: Soft, nontender, and nondistended. There is no rebound, voluntary guarding, or rigidity. : Deferred. No Billy. EXTREMITIES: Non-edematous and not cyanotic. No clubbing. Good capillary refill. SKIN: No skin breakdown. Vital Signs (last 8hr) Date Time Temp Pulse Resp B/P (MAP) Pulse Ox O2 Delivery O2 Flow Rate FiO2 06/27/24 12:00 98.1 87 18 135/69 95 Room Air 06/27/24 08:26 99.0 88 18 130/82 Room Air 06/27/24 08:10 96 Room Air* 0 21 LABS: Laboratory: Test 06/27/24 06:56 06/25/24 16:37 Range/Units White Blood Count 12.8 H 4.8-10.8 K/uL Red Blood Count 4.37 L 4.50-6.20 MIL/uL Hemoglobin 11.3 L 14.0-18.0 g/dL Hematocrit 35.1 L 42-54 % Mean Corpuscular Volume 80.3 79-99 fL Mean Corpuscular Hemoglobin 25.9 L 27.0-33.0 pg Mean Corpuscular Hemoglobin Concent 32.2 32.0-36.0 g/dL Red Cell Distribution Width 14.1 11.0-15.5 % Platelet Count 329 130-400 K/uL Mean Platelet Volume 8.4 7.5-10.5 fL Immature Granulocyte % (Auto) 0.5 0-1 % Neutrophils (%) (Auto) 76.6 40.0-77.0 % Lymphocytes (%) (Auto) 12.3 L 21.0-51.0 % Monocytes (%) (Auto) 9.5 3.0-13.0 % Eosinophils (%) (Auto) 0.9 0.0-8.0 % Basophils (%) (Auto) 0.2 0.0-5.0 % Neutrophils # (Auto) 9.8 H 1.8-7.7 K/uL Lymphocytes # (Auto) 1.6 1.0-4.8 K/uL Monocytes # (Auto) 1.2 H 0.1-1.0 K/uL Eosinophils # (Auto) 0.12 0.00-0.70 K/uL Basophils # (Auto) 0.02 0.00-0.20 K/uL Absolute Immature Granulocyte (auto 0.07 0-1 K/uL Nucleated Red Blood Cells 0.0 0.0-0.19 % Prothrombin Time 11.7 H 9.6-11.6 SEC Prothromb Time International Ratio 1.12 0.85-1.15 Activated Partial Thromboplast Time 27.2 26.3-35.5 SEC Sodium Level 139 136-145 mmol/L Potassium Level 3.7 3.5-5.1 mmol/L Chloride Level 103 101-111 mmol/L Carbon Dioxide Level 27 21-32 mmol/L Blood Urea Nitrogen 9 7-18 mg/dL Creatinine 0.8 0.5-1.3 mg/dL Glomerular Filtration Rate Calc 125 >90 mL/min Random Glucose 111 H 70-105 mg/dL Total Calcium 8.7 8.5-10.1 mg/dL Magnesium Level 2.20 1.80-2.40 mg/dL Total Bilirubin 0.5 0.2-1.0 mg/dL Aspartate Amino Transf (AST/SGOT) 23 10-37 U/L Alanine Aminotransferase (ALT/SGPT) 47 12-78 U/L Alkaline Phosphatase 85 50-136 U/L Total Protein 7.8 6.0-8.3 g/dL Albumin 2.7 L 3.5-5.0 g/dL Lactic Acid Level 1.0 0.8-2.5 mmol/L Current Medications Medications (Trade) Dose Ordered Sig/Krista Route PRN Reason Start Time Stop Time Status Last Admin Dose Admin Acetaminophen (TYLenol 325MG TAB) 650 mg Q4H PRN PO PAIN LEVEL 1 TO 3 06/25/24 23:00 07/25/24 22:59 Acetaminophen (TYLenol 325MG TAB) 650 mg Q6H PRN PO TEMPERATURE GREATER THAN 101.5 06/25/24 23:00 07/25/24 22:59 Dextrose/Sodium Chloride 1,000 ml @ 120 mls/hr Q8H20M IV 06/25/24 23:00 07/25/24 22:59 06/27/24 15:33 120 MLS/HR Diphenhydramine HCl (BENAdryl CAP) 25 mg Q4HPRN PRN PO ITCHING 06/25/24 23:00 07/25/24 22:59 Diphenhydramine HCl (BENAdryl INJ) 25 mg Q6H PRN IV ITCHING IF NPO 06/25/24 23:00 07/25/24 22:59 Famotidine (Pepcid 20mg Vial) 20 mg BID IV 06/25/24 23:00 07/25/24 22:59 06/27/24 08:19 20 MG Ketorolac Tromethamine (toRADol) 30 mg Q6H PRN IM SEVERE PAIN (7-10) 06/25/24 20:00 06/25/24 22:51 DC Ketorolac Tromethamine (toRADol) 30 mg Q6H PRN IVP SEVERE PAIN (7-10) 06/25/24 23:00 06/30/24 22:59 06/26/24 19:54 30 MG Lactulose (Constulose 20gm/ 30ml Udcup) 20 gm BID PRN PO CONSTIPATION 06/25/24 23:00 07/25/24 22:59 Nitroglycerin (Nitrostat) 0.4 mg AD PRN SL CHEST PAIN 06/25/24 23:00 07/25/24 22:59 Piperacillin Sod/ Tazobactam Sod (Zosyn 3.375gm+NS 50ml) 3.375 gm Q8H IVPB 06/26/24 12:30 07/06/24 12:29 06/27/24 14:23 3.375 GM Sodium Chloride (NS 50ml) 50 ml AD IV 06/26/24 13:00 06/26/24 12:06 DC DIAGNOSTICS / RADIOLOGY: [ ] ASSESSMENT: [1. Acute Sepsis POA Acute sigmoid diverticulitis with abscess POA Electrolyte imbalance hyponatremia Na 135 POA Leukocytosis WBC 16.3 POA Multifactorial anemia due to above POA Right epididymal head cyst per ultrasound scrotum POA ] PLAN: [ Admit the patient to med surge Zosyn 3.375 IV q6 hr Pending blood culture Pending surgeon evaluation Tylenol for fever and pain Toradol 30 mg IV Q eight p.r.n. pain Pepcid 20 mg IV q.12 Lovenox 40 mg IV q.day Further orders to follow as indicated CT abdomen/pelvis showed acute sigmoid diverticulitis with diverticular abscess Testicular ultrasound showed vascular flow was seen in both testicles at this time. Right epididymal head cyst.] APARNA MCGILL MD Jun 27, 2024 15:59
[2024-06-28] VITALS (7 sets, daily range): BP systolic 98–138; BP diastolic 48–75; PULSE 65–81; RESP 17–18; TEMP 97.5–98.6; O2SAT 100
[2024-06-28] MEDS ORDERED: DIATR MEGLU/DIATRIZOATE SODIUM 30 ML BOTTLE ONE (02:21)
[2024-06-28] MEDS ORDERED: IOHEXOL-350 75 ML VIAL IV ONE (11:29)
--- NOTE | 2024-06-28 11:38 | HMCIMG ---
Exam Type: CT ABDOMEN/PELVIS W/WO CONTRAS Clinical Information: ABDOMINAL PAIN(w oral) Comparison: None Contrast: 100 cc's Isovue 370 IV, no complications or adverse reactions CT Dose Index (CTDI): 31.60 mGy Dose Length Product (DLP): 1740.80 total mGy-cm Findings: No evidence of nephro or ureterolithiasis is found. No hydronephrosis or ureteral dilatation is seen. The lung bases are clear. The stomach is unremarkable. It shows no wall thickening. No gross ulceration is seen. It is not overly distended. There are no surrounding inflammatory changes. No wall lesions are identified to suggest cancer. The spleen is unremarkable. It is not enlarged. The pancreas shows normal anatomy. It is not fatty replaced. It shows no lesions. The pancreatic duct is not dilated. The gallbladder is unremarkable. It shows no cholelithiasis. The gallbladder wall is normal in thickness. There is no pericholecystic fluid. The is no acute or chronic inflammation noted. The adrenal glands are unremarkable. There is no enlargement. No lesions are noted. The liver is unremarkable. It shows no focal masses. The appendix is unremarkable. It shows no evidence of inflammation. No appendicolith is seen. The small bowel is unremarkable. There is no evidence of dilatation to suggest obstruction. No evidence of adynamic ileus is seen. There is no small bowel wall thickening to suggest enteritis. The large bowel shows diverticulosis particularly involving the sigmoid colon. In addition, there are inflammatory changes of the sigmoid suggestive of acute diverticulitis. There is evidence of bowel perforation with an adjacent left-sided perisigmoid abscess measuring 3.4 cm. The urinary bladder is unremarkable. There is no wall thickening to suggest tumor or inflammation. There are no intraluminal calculi. There are no diverticula. There is no evidence of chronic bladder outlet obstruction. There is no evidence of urinary bladder distention to suggest urinary retention. The other pelvic structures are unremarkable. The bony and vascular structures are unremarkable for the patient's age. IMPRESSION: The large bowel shows diverticulosis particularly involving the sigmoid colon. In addition, there are inflammatory changes of the sigmoid suggestive of acute diverticulitis. There is evidence of bowel perforation with an adjacent left-sided perisigmoid abscess measuring 3.4 cm. This study was performed using dose reduction techniques to include automated exposure control and/or adjustment of the mA and/or kV according to patient size.
--- NOTE | 2024-06-28 21:39 | PN ---
[facility] PROGRESS NOTE Date of Service: Jun 28, 2024 Time of Service: 21:38 SUBJECTIVE: [06/25 28-year-old male with no significant past medical history started with cramping pains last week pain worsened until his about a 8/10.. He has also had a change in his bowel habits with diarrhea in the last week and fevers for the last week. He has been controlling the fever with Tylenol. He describes nausea but no vomiting today. He had his last bowel movement this morning was loose there was no blood. 06/26 patient was seen by nurse practitioner physician during rounding in room 311. Patient is pending evaluation of surgeon regarding the diverticulitis and possible abscess. Patient was septic on admission we will continue IV antibiotics. WBC 13.6 which is at this moment trending down In the meantime we will continue to monitor patient. A.m. labs ] 06/27 24 patient was seen and examined. He is clinically doing well and also with decreasing leukocytosis. We will continue current antibiotics. Monitor clinically. Follow up surgery recommendations 06/28/24 patient was seen and examined. He is clinically doing well and also with decreasing leukocytosis. We will continue current antibiotics/CT reviewed with perforation/clinically does not match as he has no abdominal pain and seems very stable/will dw surgery REVIEW OF SYSTEMS Ten points reviewed and negative except for history of present illness PHYSICAL EXAM GENERAL APPEARANCE: The patient is awake, alert, and oriented, in no acute cardiopulmonary distress. NEUROLOGICAL: Cranial nerves II-XII grossly intact. Motor is 5/5 in bilateral upper and lower extremities proximal to distal. No sensory deficits. HEENT: Face is symmetric. Pupils are equal and reactive. Extraocular movements are intact. NECK: Supple. No JVD. No thyromegaly. No submental, submandibular, pre- /postauricular, occipital or supraclavicular lymphadenopathy. CHEST: Normal chest expansion. No Telemetry. LUNGS: Absence of any rales, rhonchi or any wheezing. CARDIOVASCULAR: Regular. S1 and S2 normal. No appreciable rubs, murmurs or gallops. ABDOMEN: Soft, nontender, and nondistended. There is no rebound, voluntary guarding, or rigidity. : Deferred. No Billy. EXTREMITIES: Non-edematous and not cyanotic. No clubbing. Good capillary refill. SKIN: No skin breakdown. Vital Signs (last 8hr) Date Time Temp Pulse Resp B/P (MAP) Pulse Ox O2 Delivery O2 Flow Rate FiO2 06/28/24 14:55 98.1 76 18 128/56 99 Room Air LABS: Laboratory: Test 06/27/24 06:56 Range/Units White Blood Count 12.8 H 4.8-10.8 K/uL Red Blood Count 4.37 L 4.50-6.20 MIL/uL Hemoglobin 11.3 L 14.0-18.0 g/dL Hematocrit 35.1 L 42-54 % Mean Corpuscular Volume 80.3 79-99 fL Mean Corpuscular Hemoglobin 25.9 L 27.0-33.0 pg Mean Corpuscular Hemoglobin Concent 32.2 32.0-36.0 g/dL Red Cell Distribution Width 14.1 11.0-15.5 % Platelet Count 329 130-400 K/uL Mean Platelet Volume 8.4 7.5-10.5 fL Immature Granulocyte % (Auto) 0.5 0-1 % Neutrophils (%) (Auto) 76.6 40.0-77.0 % Lymphocytes (%) (Auto) 12.3 L 21.0-51.0 % Monocytes (%) (Auto) 9.5 3.0-13.0 % Eosinophils (%) (Auto) 0.9 0.0-8.0 % Basophils (%) (Auto) 0.2 0.0-5.0 % Neutrophils # (Auto) 9.8 H 1.8-7.7 K/uL Lymphocytes # (Auto) 1.6 1.0-4.8 K/uL Monocytes # (Auto) 1.2 H 0.1-1.0 K/uL Eosinophils # (Auto) 0.12 0.00-0.70 K/uL Basophils # (Auto) 0.02 0.00-0.20 K/uL Absolute Immature Granulocyte (auto 0.07 0-1 K/uL Nucleated Red Blood Cells 0.0 0.0-0.19 % Prothrombin Time 11.7 H 9.6-11.6 SEC Prothromb Time International Ratio 1.12 0.85-1.15 Activated Partial Thromboplast Time 27.2 26.3-35.5 SEC Sodium Level 139 136-145 mmol/L Potassium Level 3.7 3.5-5.1 mmol/L Chloride Level 103 101-111 mmol/L Carbon Dioxide Level 27 21-32 mmol/L Blood Urea Nitrogen 9 7-18 mg/dL Creatinine 0.8 0.5-1.3 mg/dL Glomerular Filtration Rate Calc 125 >90 mL/min Random Glucose 111 H 70-105 mg/dL Total Calcium 8.7 8.5-10.1 mg/dL Magnesium Level 2.20 1.80-2.40 mg/dL Total Bilirubin 0.5 0.2-1.0 mg/dL Aspartate Amino Transf (AST/SGOT) 23 10-37 U/L Alanine Aminotransferase (ALT/SGPT) 47 12-78 U/L Alkaline Phosphatase 85 50-136 U/L Total Protein 7.8 6.0-8.3 g/dL Albumin 2.7 L 3.5-5.0 g/dL Current Medications Medications (Trade) Dose Ordered Sig/Krista Route PRN Reason Start Time Stop Time Status Last Admin Dose Admin Acetaminophen (TYLenol 325MG TAB) 650 mg Q4H PRN PO PAIN LEVEL 1 TO 3 06/25/24 23:00 07/25/24 22:59 Acetaminophen (TYLenol 325MG TAB) 650 mg Q6H PRN PO TEMPERATURE GREATER THAN 101.5 06/25/24 23:00 07/25/24 22:59 Dextrose/Sodium Chloride 1,000 ml @ 120 mls/hr Q8H20M IV 06/25/24 23:00 07/25/24 22:59 06/28/24 03:05 120 MLS/HR Diphenhydramine HCl (BENAdryl CAP) 25 mg Q4HPRN PRN PO ITCHING 06/25/24 23:00 07/25/24 22:59 Diphenhydramine HCl (BENAdryl INJ) 25 mg Q6H PRN IV ITCHING IF NPO 06/25/24 23:00 07/25/24 22:59 Famotidine (Pepcid 20mg Vial) 20 mg BID IV 06/25/24 23:00 07/25/24 22:59 06/28/24 19:55 20 MG Ketorolac Tromethamine (toRADol) 30 mg Q6H PRN IM SEVERE PAIN (7-10) 06/25/24 20:00 06/25/24 22:51 DC Ketorolac Tromethamine (toRADol) 30 mg Q6H PRN IVP SEVERE PAIN (7-10) 06/25/24 23:00 06/30/24 22:59 06/26/24 19:54 30 MG Lactulose (Constulose 20gm/ 30ml Udcup) 20 gm BID PRN PO CONSTIPATION 06/25/24 23:00 07/25/24 22:59 Nitroglycerin (Nitrostat) 0.4 mg AD PRN SL CHEST PAIN 06/25/24 23:00 07/25/24 22:59 Piperacillin Sod/ Tazobactam Sod (Zosyn 3.375gm+NS 50ml) 3.375 gm Q8H IVPB 06/26/24 12:30 07/06/24 12:29 06/28/24 19:55 3.375 GM Sodium Chloride (NS 50ml) 50 ml AD IV 06/26/24 13:00 06/26/24 12:06 DC DIAGNOSTICS / RADIOLOGY: [ ] ASSESSMENT: [1. Acute Sepsis POA Acute sigmoid diverticulitis with abscess POA Electrolyte imbalance hyponatremia Na 135 POA Leukocytosis WBC 16.3 POA Multifactorial anemia due to above POA Right epididymal head cyst per ultrasound scrotum POA ] PLAN: [ Admit the patient to med surge Zosyn 3.375 IV q6 hr Pending blood culture Pending surgeon evaluation Tylenol for fever and pain Toradol 30 mg IV Q eight p.r.n. pain Pepcid 20 mg IV q.12 Lovenox 40 mg IV q.day Further orders to follow as indicated CT abdomen/pelvis showed acute sigmoid diverticulitis with diverticular abscess Testicular ultrasound showed vascular flow was seen in both testicles at this time. Right epididymal head cyst.] APARNA MCGILL MD Jun 28, 2024 21:39
[2024-06-29] VITALS (8 sets, daily range): BP systolic 102–140; BP diastolic 48–87; PULSE 65–80; RESP 18–19; TEMP 97.8–98.2; O2SAT 97–99
[2024-06-29 05:28] LABS: BASOPHILS # (AUTO) 0.02 K/uL (0.00-0.20); BASOPHILS % (AUTO) 0.3 % (0.0-5.0); EOSINOPHILS # (AUTO) 0.23 K/uL (0.00-0.70); HEMATOCRIT 35.3 % (42-54); IMMATURE GRANULOCYTE ABSOLUTE 0.04 K/uL (0-1); LYMPHOCYTES # (AUTO) 1.9 K/uL (1.0-4.8); LYMPHOCYTES % (AUTO) 25.5 % (21.0-51.0); MEAN CORPUSCULAR HEMOGLOBIN 25.6 pg (27.0-33.0); MEAN CORPUSCULAR VOLUME 79.9 fL (79-99); MONOCYTES # (AUTO) 0.8 K/uL (0.1-1.0); MONOCYTES % (AUTO) 10.2 % (3.0-13.0); NEUTROPHILS # (AUTO) 4.6 K/uL (1.8-7.7); NEUTROPHILS % (AUTO) 60.5 % (40.0-77.0); PLATELET COUNT (AUTO) 380 K/uL (130-400); RED BLOOD CELL COUNT(AUTO) 4.42 MIL/uL (4.50-6.20); RED CELL DISTRIBUTION WIDTH 14.3 % (11.0-15.5); WHITE BLOOD COUNT (AUTO) 7.6 K/uL (4.8-10.8)
[2024-06-29 05:33] LABS: CREATININE 0.9 mg/dL (0.5-1.3); POTASSIUM 3.7 mmol/L (3.5-5.1)
--- NOTE | 2024-06-29 10:41 | PN ---
GENERAL SURGERY PROGRESS NOTE DATE OF SERVICE: Jun 29, 2024 TIME OF SERVICE: 10:40 Acute diverticulitis PROBLEM LISTS: [ ] Acute diverticulitis with localized abscess INTERVAL HISTORY: [ ] improving PHYSICAL EXAMINATION: GENERAL: [Patient is lying comfortably in bed, not in any obvious distress.] HEAD: [Normal with no signs of head trauma.] EYES: [Not pale not jaundiced afebrile to touch.] ENT: [ Normal.] NECK: [Supple,no tenderness,no lymphadenopathy,no masses,no thyromegaly ,no bruits, no JVD.] LUNGS: [Clear breath sounds bilaterally. No wheezes, rales, or rhonchi.] HEART: [Regular rate and rhythm. Normal S1 and S2, without murmurs, rub or gallop.] VASC: [No edema. Peripheral pulses normal and equal in all extremities.] ABD: [Bowel sounds present,soft, Nontenderno masses, no organomegaly.] : [Normal, no suprapubic tenderness.] LYMPH: [No lymphadenopathy noted.] EXT: [ Warm soft, non tender.] SKIN: [ No rashes or lesions.] NEURO: [ Awake Alert and oriented x3.] LABORATORY: [ ] Hematology Labs: Test 06/29/24 04:54 Range/Units White Blood Count 7.6 4.8-10.8 K/uL Red Blood Count 4.42 L 4.50-6.20 MIL/uL Hemoglobin 11.3 L 14.0-18.0 g/dL Hematocrit 35.3 L 42-54 % Mean Corpuscular Volume 79.9 79-99 fL Mean Corpuscular Hemoglobin 25.6 L 27.0-33.0 pg Mean Corpuscular Hemoglobin Concent 32.0 32.0-36.0 g/dL Red Cell Distribution Width 14.3 11.0-15.5 % Platelet Count 380 130-400 K/uL Mean Platelet Volume 8.7 7.5-10.5 fL Immature Granulocyte % (Auto) 0.5 0-1 % Neutrophils (%) (Auto) 60.5 40.0-77.0 % Lymphocytes (%) (Auto) 25.5 21.0-51.0 % Monocytes (%) (Auto) 10.2 3.0-13.0 % Eosinophils (%) (Auto) 3.0 0.0-8.0 % Basophils (%) (Auto) 0.3 0.0-5.0 % Neutrophils # (Auto) 4.6 1.8-7.7 K/uL Lymphocytes # (Auto) 1.9 1.0-4.8 K/uL Monocytes # (Auto) 0.8 0.1-1.0 K/uL Eosinophils # (Auto) 0.23 0.00-0.70 K/uL Basophils # (Auto) 0.02 0.00-0.20 K/uL Absolute Immature Granulocyte (auto 0.04 0-1 K/uL Nucleated Red Blood Cells 0.0 0.0-0.19 % Chemistry Labs: Test 06/29/24 04:54 Range/Units Sodium Level 139 136-145 mmol/L Potassium Level 3.7 3.5-5.1 mmol/L Chloride Level 103 101-111 mmol/L Carbon Dioxide Level 31 21-32 mmol/L Blood Urea Nitrogen 7 7-18 mg/dL Creatinine 0.9 0.5-1.3 mg/dL Glomerular Filtration Rate Calc 121 >90 mL/min Random Glucose 97 70-105 mg/dL Total Calcium 9.0 8.5-10.1 mg/dL DIAGNOSTICS / RADIOLOGY: [Copy/Paste Echos/Imaging Report here] ASSESSMENT: [] Acute diverticulitis with localized abscess Improving PLAN: [] doing well advance diet dietary consult ID consult May DC tomorrow from my standpoint if continues to improve KIMO OVIEDO MD Jun 29, 2024 10:40
--- NOTE | 2024-06-29 11:46 | PN ---
INFECTIOUS DISEASE PROGRESS NOTE Date of Service: Jun 29, 2024 SUBJECTIVE: This is a 28-year-old male patient with no past medical history who presented to the emergency room for chief complaint of lower abdominal pain and nausea. Patient also reported having fevers and chills and scrotal pain. Patient had a temperature of 100.2 on admission and the WBC was elevated at 16.3. A CT of the abdomen/pelvis showed findings of acute sigmoid diverticulitis with diverticular abscess measuring 3.4 cm. General surgeon was consulted. A percutaneous drain was ordered, per intervention Radiology report however it was canceled due to there was not enough fluid collection to aspirate. A scrotal ultrasound showed a right epididymal head cyst. Patient has been started on Zosyn IV every 8 hours. During examination today in room 311 patient is awake, alert and oriented x 3. Patient was up ambulating in the room without difficulty. The WBC has trended down to 7.6. No growth reported on the blood cultures for 4 days. 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 We will continue on Zosyn IV and continue to monitor patient. REVIEW OF SYSTEMS CONSTITUTIONAL: Positive for fever and chills POA. HEAD/FACE: No signs of trauma. EENT: Denies eye pain, blurred vision, double vision, or light sensitivity. RESPIRATORY: Denies shortness of breath, cough, wheezing CARDIOVASCULAR: Denies chest pain, palpitation, syncope GASTROINTESTINAL/ABDOMINAL: Lower abdominal pain and nausea. GENITOURINARY: Denies dysuria or hematuria. Scrotal pain. MUSCULOSKELETAL: Denies joint pain, tenderness, or trauma. INTEGUMENTARY: Denies rash or itchiness. NEUROLOGICAL/PSYCH: Denies anxiety, depression, heat or cold intolerance. PHYSICAL EXAM EYES: Anicteric. Pupils equal and reactive. HENT: No oral thrush seen, moist Oral mucosa. NECK: Supple, no JVD or thyromegaly. LUNGS: Good air entry. No rales, no rhonchi. CARDIOVASCULAR: S1, S2 regular. No murmur heard. ABDOMEN: Soft, bowel sounds present, no organomegaly. Lower abdominal pain. CENTRAL NERVOUS SYSTEM: Awake, alert, oriented x 3. SKIN: No rashes, no swelling. LYMPHATICS: No peripheral lymphadenopathy MUSCULOSKELETAL: No joint swelling, erythema or tenderness. EXTREMITIES: No cyanosis or clubbing BACK: No deformity, no pressure ulcer. GENITOURINARY: No dysuria or hematuria. Pain to the right side of the scrotum. Vital Sign (Last 12 Hours) 06/29/24 06/29/24 06/29/24 06/29/24 00:14 03:46 07:55 08:00 Temp 98.1 98.1 97.9 Pulse 78 76 71 Resp 19 18 18 B/P (MAP) 128/48 105/54 108/87 Pulse Ox 100 100 99 99 O2 Delivery Room Air Room Air Room Air Room Air* O2 Flow Rate 0 FiO2 21 Intake & Output (last 24hrs) 06/28/24 06/28/24 06/29/24 15:00 23:00 07:00 Intake Total 1200.0 ml Balance 1200.0 ml LABS: Laboratory: Test 06/29/24 04:54 Range/Units White Blood Count 7.6 4.8-10.8 K/uL Red Blood Count 4.42 L 4.50-6.20 MIL/uL Hemoglobin 11.3 L 14.0-18.0 g/dL Hematocrit 35.3 L 42-54 % Mean Corpuscular Volume 79.9 79-99 fL Mean Corpuscular Hemoglobin 25.6 L 27.0-33.0 pg Mean Corpuscular Hemoglobin Concent 32.0 32.0-36.0 g/dL Red Cell Distribution Width 14.3 11.0-15.5 % Platelet Count 380 130-400 K/uL Mean Platelet Volume 8.7 7.5-10.5 fL Immature Granulocyte % (Auto) 0.5 0-1 % Neutrophils (%) (Auto) 60.5 40.0-77.0 % Lymphocytes (%) (Auto) 25.5 21.0-51.0 % Monocytes (%) (Auto) 10.2 3.0-13.0 % Eosinophils (%) (Auto) 3.0 0.0-8.0 % Basophils (%) (Auto) 0.3 0.0-5.0 % Neutrophils # (Auto) 4.6 1.8-7.7 K/uL Lymphocytes # (Auto) 1.9 1.0-4.8 K/uL Monocytes # (Auto) 0.8 0.1-1.0 K/uL Eosinophils # (Auto) 0.23 0.00-0.70 K/uL Basophils # (Auto) 0.02 0.00-0.20 K/uL Absolute Immature Granulocyte (auto 0.04 0-1 K/uL Nucleated Red Blood Cells 0.0 0.0-0.19 % Sodium Level 139 136-145 mmol/L Potassium Level 3.7 3.5-5.1 mmol/L Chloride Level 103 101-111 mmol/L Carbon Dioxide Level 31 21-32 mmol/L Blood Urea Nitrogen 7 7-18 mg/dL Creatinine 0.9 0.5-1.3 mg/dL Glomerular Filtration Rate Calc 121 >90 mL/min Random Glucose 97 70-105 mg/dL Total Calcium 9.0 8.5-10.1 mg/dL DIAGNOSTICS / RADIOLOGY: PATIENT: INESSA FERNANDEZ MR#: [id number] : 1995 SEX: M AGE: 28 LOCATION: [facility] ORDER 2300 STATUS: ADM IN REPORT#: [id number] SERVICE 0600 REASON: ABDOMINAL PAIN(w oral) ORDERING PHYSICIAN: KIMO OVIEDO MD PROCEDURE: ABD PELWWO - CT ABDOMEN/PELVIS W/WO CONTRAS Exam Type: CT ABDOMEN/PELVIS W/WO CONTRAS Clinical Information: ABDOMINAL PAIN(w oral) Comparison: None Contrast: 100 cc's Isovue 370 IV, no complications or adverse reactions CT Dose Index (CTDI): 31.60 mGy Dose Length Product (DLP): 1740.80 total mGy-cm Findings: No evidence of nephro or ureterolithiasis is found. No hydronephrosis or ureteral dilatation is seen. The lung bases are clear. The stomach is unremarkable. It shows no wall thickening. No gross ulceration is seen. It is not overly distended. There are no surrounding inflammatory changes. No wall lesions are identified to suggest cancer. The spleen is unremarkable. It is not enlarged. The pancreas shows normal anatomy. It is not fatty replaced. It shows no lesions. The pancreatic duct is not dilated. The gallbladder is unremarkable. It shows no cholelithiasis. The gallbladder wall is normal in thickness. There is no pericholecystic fluid. The is no acute or chronic inflammation noted. The adrenal glands are unremarkable. There is no enlargement. No lesions are noted. The liver is unremarkable. It shows no focal masses. The appendix is unremarkable. It shows no evidence of inflammation. No appendicolith is seen. The small bowel is unremarkable. There is no evidence of dilatation to suggest obstruction. No evidence of adynamic ileus is seen. There is no small bowel wall thickening to suggest enteritis. The large bowel shows diverticulosis particularly involving the sigmoid colon. In addition, there are inflammatory changes of the sigmoid suggestive of acute diverticulitis. There is evidence of bowel perforation with an adjacent left-sided perisigmoid abscess measuring 3.4 cm. The urinary bladder is unremarkable. There is no wall thickening to suggest tumor or inflammation. There are no intraluminal calculi. There are no diverticula. There is no evidence of chronic bladder outlet obstruction. There is no evidence of urinary bladder distention to suggest urinary retention. The other pelvic structures are unremarkable. The bony and vascular structures are unremarkable for the patient's age. IMPRESSION: The large bowel shows diverticulosis particularly involving the sigmoid colon. In addition, there are inflammatory changes of the sigmoid suggestive of acute diverticulitis. There is evidence of bowel perforation with an adjacent left-sided perisigmoid abscess measuring 3.4 cm. This study was performed using dose reduction techniques to include automated exposure control and/or adjustment of the mA and/or kV according to patient size. DICTATED BY: SUNSHINE POWELL MD DATE: 06/28/24 1134 ASSESSMENT: Abdominal pain. Sigmoid diverticulitis with diverticular abscess. Leukocytosis. Right epididymal head cyst. PLAN: Continue Zosyn IV. We will follow up on the cultures. Continue pain management. Will monitor electrolytes. Thank you for allowing ID to participate in the care of this patient. This case was reviewed and discussed with my supervising physician and the above assessment and plan was formulated and agreed upon. ATTESTATION BY PHYSICIAN I have seen and examined the patient. I reviewed the documentation, medical decision making, and treatment plan as noted by the mid-level provider above. I agree with the findings and plan of care. CHERYL CHRISTIANSON MD, MIRTA L BACK END ENGINEER Jun 29, 2024 11:46
--- NOTE | 2024-06-29 15:50 | NUR ---
DCP Patient speaks Jordanian. Patient states lives with Antonia Call, Spouse [phone] and four children in a house with four steps at the entrance and a tub. 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 States able to complete ADL's on his own. Denies medical devices. Denies home health services, home care provider or dialysis. PCP - None per patient Pharmacy - [facility], [facility]. Upon discharge, Antonia Call, Spouse [phone] and assist with care, as needed. Provided Community Resources List and referred to Financial Counseling. Addendum: 06/29/24 at 1555 by ATTILA DANIELS RN CM Amended: Links added.
--- NOTE | 2024-06-29 18:49 | PN ---
[facility] PROGRESS NOTE Date of Service: Jun 29, 2024 Time of Service: 18:40 SUBJECTIVE: [06/25 28-year-old male with no significant past medical history started with cramping pains last week pain worsened until his about a 8/10.. He has also had a change in his bowel habits with diarrhea in the last week and fevers for the last week. He has been controlling the fever with Tylenol. He describes nausea but no vomiting today. He had his last bowel movement this morning was loose there was no blood. 06/26 patient was seen by nurse practitioner physician during rounding in room 311. Patient is pending evaluation of surgeon regarding the diverticulitis and possible abscess. Patient was septic on admission we will continue IV antibiotics. WBC 13.6 which is at this moment trending down In the meantime we will continue to monitor patient. A.m. labs ] 06/27 24 patient was seen and examined. He is clinically doing well and also with decreasing leukocytosis. We will continue current antibiotics. Monitor clinically. Follow up surgery recommendations 06/28/24 patient was seen and examined. He is clinically doing well and also with decreasing leukocytosis. We will continue current antibiotics/CT reviewed with perforation/clinically does not match as he has no abdominal pain and seems very stable/will dw surgery 06/29/2024 Patient is seen and examined at the bedside. Hemodynamically stable. He states that he feels well and has no complaints. He is tolerating full liquid diet without any nausea/vomiting. He denies fever, chills, nausea, vomiting, abdominal pain, diarrhea. Repeat CT abdomen revealed diverticulosis particularly involving the sigmoid colon. In addition, there are inflammatory changes of the sigmoid suggestive of acute diverticulitis. There is evidence of bowel perforation with an adjacent left-sided perisigmoid abscess measuring 3.4 cm. No interventions as per surgery consult. Plan to transition to regular diet tomorrow. Hemoglobin 11.3, WBC improved from 12.8-7.6, CMP unremarkable. Blood culture results remained negative. REVIEW OF SYSTEMS Ten points reviewed and negative except for history of present illness PHYSICAL EXAM GENERAL APPEARANCE: The patient is awake, alert, and oriented, in no acute cardiopulmonary distress. NEUROLOGICAL: Cranial nerves II-XII grossly intact. Motor is 5/5 in bilateral upper and lower extremities proximal to distal. No sensory deficits. HEENT: Face is symmetric. Pupils are equal and reactive. Extraocular movements are intact. NECK: Supple. No JVD. No thyromegaly. No submental, submandibular, pre- /postauricular, occipital or supraclavicular lymphadenopathy. CHEST: Normal chest expansion. No Telemetry. LUNGS: Absence of any rales, rhonchi or any wheezing. CARDIOVASCULAR: Regular. S1 and S2 normal. No appreciable rubs, murmurs or gallops. ABDOMEN: Soft, nontender, and nondistended. There is no rebound, voluntary guarding, or rigidity. : Deferred. No Billy. EXTREMITIES: Non-edematous and not cyanotic. No clubbing. Good capillary refill. SKIN: No skin breakdown. Vital Signs (last 8hr) Date Time Temp Pulse Resp B/P (MAP) Pulse Ox O2 Delivery O2 Flow Rate FiO2 06/29/24 15:17 98.1 65 18 102/68 99 Room Air LABS: Laboratory: Test 06/29/24 04:54 Range/Units White Blood Count 7.6 4.8-10.8 K/uL Red Blood Count 4.42 L 4.50-6.20 MIL/uL Hemoglobin 11.3 L 14.0-18.0 g/dL Hematocrit 35.3 L 42-54 % Mean Corpuscular Volume 79.9 79-99 fL Mean Corpuscular Hemoglobin 25.6 L 27.0-33.0 pg Mean Corpuscular Hemoglobin Concent 32.0 32.0-36.0 g/dL Red Cell Distribution Width 14.3 11.0-15.5 % Platelet Count 380 130-400 K/uL Mean Platelet Volume 8.7 7.5-10.5 fL Immature Granulocyte % (Auto) 0.5 0-1 % Neutrophils (%) (Auto) 60.5 40.0-77.0 % Lymphocytes (%) (Auto) 25.5 21.0-51.0 % Monocytes (%) (Auto) 10.2 3.0-13.0 % Eosinophils (%) (Auto) 3.0 0.0-8.0 % Basophils (%) (Auto) 0.3 0.0-5.0 % Neutrophils # (Auto) 4.6 1.8-7.7 K/uL Lymphocytes # (Auto) 1.9 1.0-4.8 K/uL Monocytes # (Auto) 0.8 0.1-1.0 K/uL Eosinophils # (Auto) 0.23 0.00-0.70 K/uL Basophils # (Auto) 0.02 0.00-0.20 K/uL Absolute Immature Granulocyte (auto 0.04 0-1 K/uL Nucleated Red Blood Cells 0.0 0.0-0.19 % Sodium Level 139 136-145 mmol/L Potassium Level 3.7 3.5-5.1 mmol/L Chloride Level 103 101-111 mmol/L Carbon Dioxide Level 31 21-32 mmol/L Blood Urea Nitrogen 7 7-18 mg/dL Creatinine 0.9 0.5-1.3 mg/dL Glomerular Filtration Rate Calc 121 >90 mL/min Random Glucose 97 70-105 mg/dL Total Calcium 9.0 8.5-10.1 mg/dL Current Medications Medications (Trade) Dose Ordered Sig/Krista Route PRN Reason Start Time Stop Time Status Last Admin Dose Admin Acetaminophen (TYLenol 325MG TAB) 650 mg Q4H PRN PO PAIN LEVEL 1 TO 3 06/25/24 23:00 07/25/24 22:59 Acetaminophen (TYLenol 325MG TAB) 650 mg Q6H PRN PO TEMPERATURE GREATER THAN 101.5 06/25/24 23:00 07/25/24 22:59 Dextrose/Sodium Chloride 1,000 ml @ 120 mls/hr Q8H20M IV 06/25/24 23:00 07/25/24 22:59 06/29/24 04:06 120 MLS/HR Diphenhydramine HCl (BENAdryl CAP) 25 mg Q4HPRN PRN PO ITCHING 06/25/24 23:00 07/25/24 22:59 Diphenhydramine HCl (BENAdryl INJ) 25 mg Q6H PRN IV ITCHING IF NPO 06/25/24 23:00 07/25/24 22:59 Famotidine (Pepcid 20mg Vial) 20 mg BID IV 06/25/24 23:00 07/25/24 22:59 06/29/24 08:13 20 MG Ketorolac Tromethamine (toRADol) 30 mg Q6H PRN IM SEVERE PAIN (7-10) 06/25/24 20:00 06/25/24 22:51 DC Ketorolac Tromethamine (toRADol) 30 mg Q6H PRN IVP SEVERE PAIN (7-10) 06/25/24 23:00 06/30/24 22:59 06/26/24 19:54 30 MG Lactulose (Constulose 20gm/ 30ml Udcup) 20 gm BID PRN PO CONSTIPATION 06/25/24 23:00 07/25/24 22:59 Nitroglycerin (Nitrostat) 0.4 mg AD PRN SL CHEST PAIN 06/25/24 23:00 07/25/24 22:59 Piperacillin Sod/ Tazobactam Sod (Zosyn 3.375gm+NS 50ml) 3.375 gm Q8H IVPB 06/26/24 12:30 07/06/24 12:29 06/29/24 13:25 3.375 GM Sodium Chloride (NS 50ml) 50 ml AD IV 06/26/24 13:00 06/26/24 12:06 DC DIAGNOSTICS / RADIOLOGY: PROCEDURE: ABD PELWWO - CT ABDOMEN/PELVIS W/WO CONTRAS Exam Type: CT ABDOMEN/PELVIS W/WO CONTRAS Clinical Information: ABDOMINAL PAIN(w oral) Comparison: None Contrast: 100 cc's Isovue 370 IV, no complications or adverse reactions CT Dose Index (CTDI): 31.60 mGy Dose Length Product (DLP): 1740.80 total mGy-cm Findings: No evidence of nephro or ureterolithiasis is found. No hydronephrosis or ureteral dilatation is seen. The lung bases are clear. The stomach is unremarkable. It shows no wall thickening. No gross ulceration is seen. It is not overly distended. There are no surrounding inflammatory changes. No wall lesions are identified to suggest cancer. The spleen is unremarkable. It is not enlarged. The pancreas shows normal anatomy. It is not fatty replaced. It shows no lesions. The pancreatic duct is not dilated. The gallbladder is unremarkable. It shows no cholelithiasis. The gallbladder wall is normal in thickness. There is no pericholecystic fluid. The is no acute or chronic inflammation noted. The adrenal glands are unremarkable. There is no enlargement. No lesions are noted. The liver is unremarkable. It shows no focal masses. The appendix is unremarkable. It shows no evidence of inflammation. No appendicolith is seen. The small bowel is unremarkable. There is no evidence of dilatation to suggest obstruction. No evidence of adynamic ileus is seen. There is no small bowel wall thickening to suggest enteritis. The large bowel shows diverticulosis particularly involving the sigmoid colon. In addition, there are inflammatory changes of the sigmoid suggestive of acute diverticulitis. There is evidence of bowel perforation with an adjacent left-sided perisigmoid abscess measuring 3.4 cm. The urinary bladder is unremarkable. There is no wall thickening to suggest tumor or inflammation. There are no intraluminal calculi. There are no diverticula. There is no evidence of chronic bladder outlet obstruction. There is no evidence of urinary bladder distention to suggest urinary retention. The other pelvic structures are unremarkable. The bony and vascular structures are unremarkable for the patient's age. IMPRESSION: The large bowel shows diverticulosis particularly involving the sigmoid colon. In addition, there are inflammatory changes of the sigmoid suggestive of acute diverticulitis. There is evidence of bowel perforation with an adjacent left-sided perisigmoid abscess measuring 3.4 cm. This study was performed using dose reduction techniques to include automated exposure control and/or adjustment of the mA and/or kV according to patient size. ASSESSMENT: Acute Sepsis POA Acute sigmoid diverticulitis with abscess POA Acute sigmoid diverticulitis with evidence of bowel perforation and an adjacent left-sided perisigmoid abscess measuring 3.[address] on 06/28/2024 Electrolyte imbalance hyponatremia Na 135 POA Leukocytosis WBC 16.3 POA Multifactorial anemia due to above POA Right epididymal head cyst per ultrasound scrotum POA PLAN: Continue Zosyn 3.375 IV q6 hr as per ID recommendation Continue full liquid diet for now We will start regular diet tomorrow Continue IV fluids dextrose at the rate 120 mL/hour No surgical interventions at this time as per surgery consult Continue Tylenol for fever and pain Continue Toradol 30 mg IV Q eight p.r.n. pain Continue GI prophylaxis Pepcid 20 mg IV q.12 Continue DVT prophylax Lovenox 40 mg IV q.day Monitor electrolytes and replace them according to the protocols if needed Coordinate with ID and surgery consult on discharge plan ATTESTATION BY PHYSICIAN I have seen and examined the patient. I reviewed the documentation, medical decision making, and treatment plan as noted by the resident above. I agree with the findings and plan of care. Kumar Bejarano MD, PRIYANKA MD Jun 29, 2024 18:49
[2024-06-30 00:44] VITALS: BP 132/66; PULSE 71; RESP 18; TEMP 98
[2024-06-30 04:40] VITALS: BP 124/55; PULSE 66; RESP 18; TEMP 97.4
[2024-06-30 04:56] LABS: BASOPHILS # (AUTO) 0.03 K/uL (0.00-0.20); BASOPHILS % (AUTO) 0.4 % (0.0-5.0); EOSINOPHILS # (AUTO) 0.23 K/uL (0.00-0.70); EOSINOPHILS % (AUTO) 3.1 % (0.0-8.0); HEMATOCRIT 35.2 % (42-54); IMMATURE GRANULOCYTE ABSOLUTE 0.04 K/uL (0-1); LYMPHOCYTES # (AUTO) 2.2 K/uL (1.0-4.8); LYMPHOCYTES % (AUTO) 28.5 % (21.0-51.0); MEAN CORPUSCULAR HGB CONC 32.7 g/dL (32.0-36.0); MEAN CORPUSCULAR VOLUME 79.5 fL (79-99); MONOCYTES # (AUTO) 0.7 K/uL (0.1-1.0); MONOCYTES % (AUTO) 9.8 % (3.0-13.0); NEUTROPHILS # (AUTO) 4.4 K/uL (1.8-7.7); NEUTROPHILS % (AUTO) 57.7 % (40.0-77.0); PLATELET COUNT (AUTO) 408 K/uL (130-400); RED BLOOD CELL COUNT(AUTO) 4.43 MIL/uL (4.50-6.20); RED CELL DISTRIBUTION WIDTH 14.6 % (11.0-15.5); WHITE BLOOD COUNT (AUTO) 7.5 K/uL (4.8-10.8)
[2024-06-30 05:11] LABS: CREATININE 0.8 mg/dL (0.5-1.3); POTASSIUM 3.8 mmol/L (3.5-5.1)
[2024-06-30 08:00] VITALS: BP 125/54; PULSE 68; RESP 16; TEMP 97.9
[2024-06-30 09:15] VITALS: O2SAT 99
--- NOTE | 2024-06-30 09:40 | NUR ---
DR. CHRISTIANSON AWARE OF CONSULT.
[2024-06-30 11:52] VITALS: BP 131/83; PULSE 71; RESP 19; TEMP 97.9
[2024-06-30] MEDS ORDERED: PANT40TA54 PO (14:10)
--- NOTE | 2024-06-30 15:15 | NUR ---
DC NOTE DC INSTRUCTIONS AND FOLLOW UP APPOINTMENT TO BE CALLED, PRINTED PRESCRIPTION AND E-SCRIPT SENT TO PT'S LOCAL PHARMACY. PIV REMOVED, CATHETER INTACT, DENIES ANY PAIN OR DISCOMFORT. PT IS WHEELED DOWNSTAIRS WITH ARMHOLE BASTER JUMPBASTING INTO VIA PRIVATE CAR. NO FURTHER COMMENTS OR CONCERNS AT THIS TIME.
--- NOTE | 2024-06-30 15:49 | DS ---
Discharge Summary Hospital Course Summary: This is a case of a 28-year-old male with no significant past medical history who presented to the ER with cramping abdominal pain that began last week and worsened to a severity of 8/10. He also experienced a change in bowel movements including diarrhea over the past week, along with fever which he managed with Tylenol. He denied vomiting but reported some nausea. His last bowel movement was loose with no blood. Initial labs WBC 16.3, hemoglobin 12.1, CMP unremarkable, urinalysis positive for mild proteinuria, PT 11.7. Testicular ultrasound revealed vascular flow in both testicles and a right epididymal head cyst. CT abdomen findings suggested acute sigmoid diverticulitis with a div erticular abscess. A surgical consult was obtained and the patient was started on NPO, IV fluids and antibiotics. Initially CT drainage drainage was planned but cancelled due to the fluid collection being too small. A repeat CT abdomen with contrast showed diverticulosis particularly in the sigmoid colon with inflammatory changes consistent with acute diverticulitis.There was evidence of bowel perforation and a left-sided perisigmoid abscess measuring 3.4 cm. Surgery consult did not recommend any active interventions. The patient was slowly transitioned to a full liquid diet and later to a regular diet which he tolerated well. An ID consult was obtained for antibiotic management and the patient was started on Zosyn IV. Over the course of his hospital stay WBC improved from 16.3-7.5 and is CMP remained unremarkable. Blood culture showed no growth. Today, the patient was seen and examined at the bedside. He reports feeling well with no complaints. He is able to tolerate a regular diet without any symptoms and has not experienced any fevers abdominal pain or diarrhea. Clearance for discharge is obtained from ID and surgery consult. The patient is being discharged today and prescription was provided by ID consult, Augmentin 875/125 mg b.i.d. for 10 days, fluconazole 200 mg p.o. Q 24. He was also prescribed pantoprazole 40 mg p.o. daily for 10 days. Advised to follow up with PCP within 2-3 days and surgery consult outpatient with within 2 weeks. The patient acknowledged understanding of the information provided. 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 B mode, color flow and spectral analysis was performed. FINDINGS: RIGHT TESTICLE: measures 4.9 cm. Vascular flow is seen. No evidence of hydrocele or varicocele. Epididymal head cyst is seen measuring 1.7 cm. LEFT TESTICLE: measures 3.7 cm. Vascular flow is seen. No evidence of hydrocele or varicocele. The epididymis demonstrates echogenicity within normal limits. IMPRESSION: Vascular flow was seen in both testicles at this time. Right epididymal head cyst. SERVICE 1429 REASON: lower abd pain ORDERING PHYSICIAN: SHUBHAM LOBO [facility] PROCEDURE: ABD PEL W - CT ABDOMEN/PELVIS W/CONTRAST CT ABDOMEN/PELVIS W/CONTRAST HISTORY: Abdominal pain COMPARISON: None TECHNIQUE: Multiple sequential axial images of the abdomen and pelvis were obtained from the dome of the diaphragm through symphysis pubis. Patient was examined 5 cc of Omnipaque through intravenous route. Oral contrast was not given. FINDINGS: No pleural effusion is seen bilaterally. There is no evidence of parenchymal disease or pulmonary nodule of the visualized lower lungs. Degenerative changes of the thoracolumbar spine are present. The heart is not enlarged. Liver is enlarged with fatty changes measuring 25 cm. There is sigmoid colon wall thickening with adjacent fat stranding suggestive of acute sigmoid diverticulitis. There is complex fluid collection with air collection near the sigmoid colon measuring 4 cm suspicious for abscess. No CT evidence of acute appendicitis is seen. Liver, spleen, adrenal glands and pancreas are unremarkable. There is no evidence of hydronephrosis bilaterally. No evidence of renal stone is seen. Fecal material is seen in the colon. There are normal size retroperitoneal and mesenteric lymph nodes. No ascites is seen. Pelvic sidewalls are symmetric bilaterally. Bladder is moderately distended without wall thickening. IMPRESSION: 1. Findings suggestive acute sigmoid diverticulitis with diverticular abscess. SERVICE 0600 REASON: ABDOMINAL PAIN(w oral) ORDERING PHYSICIAN: KIMO OVIEDO MD PROCEDURE: ABD PELWWO - CT ABDOMEN/PELVIS W/WO CONTRAS Exam Type: CT ABDOMEN/PELVIS W/WO CONTRAS Clinical Information: ABDOMINAL PAIN(w oral) Comparison: None Contrast: 100 cc's Isovue 370 IV, no complications or adverse reactions CT Dose Index (CTDI): 31.60 mGy Dose Length Product (DLP): 1740.80 total mGy-cm Findings: No evidence of nephro or ureterolithiasis is found. No hydronephrosis or ureteral dilatation is seen. The lung bases are clear. The stomach is unremarkable. It shows no wall thickening. No gross ulceration is seen. It is not overly distended. There are no surrounding inflammatory changes. No wall lesions are identified to suggest cancer. The spleen is unremarkable. It is not enlarged. The pancreas shows normal anatomy. It is not fatty replaced. It shows no lesions. The pancreatic duct is not dilated. The gallbladder is unremarkable. It shows no cholelithiasis. The gallbladder wall is normal in thickness. There is no pericholecystic fluid. The is no acute or chronic inflammation noted. The adrenal glands are unremarkable. There is no enlargement. No lesions are noted. The liver is unremarkable. It shows no focal masses. The appendix is unremarkable. It shows no evidence of inflammation. No appendicolith is seen. The small bowel is unremarkable. There is no evidence of dilatation to suggest obstruction. No evidence of adynamic ileus is seen. There is no small bowel wall thickening to suggest enteritis. The large bowel shows diverticulosis particularly involving the sigmoid colon. In addition, there are inflammatory changes of the sigmoid suggestive of acute diverticulitis. There is evidence of bowel perforation with an adjacent left-sided perisigmoid abscess measuring 3.4 cm. The urinary bladder is unremarkable. There is no wall thickening to suggest tumor or inflammation. There are no intraluminal calculi. There are no diverticula. There is no evidence of chronic bladder outlet obstruction. There is no evidence of urinary bladder distention to suggest urinary retention. The other pelvic structures are unremarkable. The bony and vascular structures are unremarkable for the patient's age. IMPRESSION: The large bowel shows diverticulosis particularly involving the sigmoid colon. In addition, there are inflammatory changes of the sigmoid suggestive of acute diverticulitis. There is evidence of bowel perforation with an adjacent left-sided perisigmoid abscess measuring 3.4 cm. This study was performed using dose reduction techniques to include automated exposure control and/or adjustment of the mA and/or kV according to patient size. 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 for 10 days, fluconazole 200 mg p.o. Q 24., and pantoprazole 40 mg p.o. daily for 10 days by hospitalist team TEACHING : The patient was instructed to present to the nearest Emergency Department or call 911 should their symptoms return or worsen. Discharge Instructions: Follow up with PCP within 2-3 days Follow up with Surgery consult outpatient within [address] Burns at [phone] for appointment. Discharge instructions Complete the antibiotic course prescribed by ID consult fluconazole 200 mg p.o. daily [id number] mg p.o. b.i.d. for 10 days Take pantop 40mg PO before breakfast for 10 days Can use acetaminophen p.r.n. for pain Start with a low fiber diet and gradually transition to a high fiber diet Avoid alcohol, caffeine, spicy foods Monitor for symptoms like fever, increasing or severe abdominal pain, nausea, vomiting or inability to eat or drink, persistent diarrhea constipation, rectal bleeding or black, tarry stools and seek immediate medical attention in such scenario Home Medications: Active Scripts Pantoprazole Sodium (Pantoprazole Sodium) 40 Mg Tablet.dr, 1 TAB PO DAILY for 10 Days, #10 TAB 0 Refills Prov:RANDI MCKEON MD 06/30/24 Time spent arranging discharge: 1-30 minutes ATTESTATION BY PHYSICIAN I have seen and examined the patient. I reviewed the documentation, medical decision making, and treatment plan as noted by the resident above. I agree with the findings and plan of care. Kumar Bejarano MD, PRIYANKA MD Jun 30, 2024 15:49
== END 2024-06-30 15:15 | disposition home or self-care (01) | DRG 872 ==
LOC: EDH 12:46 → EDHIP 12:47 → 3BH 21:30
PROVIDERS: ADMIT Family Medicine; ATTEND Family Medicine
DX: A41.9 Sepsis, unspecified organism (principal); K57.20 Diverticulitis of large intestine with perforation and abscess without bleeding; E87.1 Hypo-osmolality and hyponatremia; Z68.41 Body mass index [BMI] 40.0-44.9, adult; D64.9 Anemia, unspecified; E11.9 Type 2 diabetes mellitus without complications; E66.01 Morbid (severe) obesity due to excess calories; N50.82 Scrotal pain; Z82.49 Family history of ischemic heart disease and other diseases of the circulatory system; Z83.3 Family history of diabetes mellitus; Z79.899 Other long term (current) drug therapy
CPT/HCPCS: 36415; 74177; 74178; 76870; 80048; 80053; 81001; 83605; 83735; 85025; 85610; 85730; 87040; 96365; 96372; 96375; 99285; G0378; J1171; J1200; J1885; J2270; J2405; J2543; J3490; Q9963; Q9967